=== PATIENT | male | born 1980 ===

== ENCOUNTER 2020-11-14 05:00 | Emergency (ER) | payer BC ==
[2020-11-14] MEDS ORDERED: Oxymetazoline 0.05% Nasal Spray 15 ML Bottle NAS ONE (05:01)
--- NOTE | 2020-11-14 05:06 | EDM.PDOC ---
ED HPI GENERAL MEDICAL PROBLEM - General Chief Complaint: ENT Problem Stated Complaint: NOSE BLEEDING Time Seen by Provider: 11/14/20 05:01 Source of Information: Reports: Patient History Limitations: Reports: No Limitations - History of Present Illness INITIAL COMMENTS - FREE TEXT/NARRATIVE: 40-year-old male presents for nosebleed. Patient notes that he has had on and off nosebleeds for several years but this 1 seemed worse than normal. It is restricted to the left nare. He denies any difficulty breathing or swallowing. - Related Data Allergies Allergy/AdvReac Type Severity Reaction Status Date / Time No Known Allergies Allergy Verified 11/14/20 05:11 Home Meds: Home Meds . [No Known Home Meds] 11/14/20 [History] ED ROS GENERAL - Review of Systems Review Of Systems: Comprehensive ROS is negative, except as noted in HPI. ED EXAM, GENERAL - Physical Exam Exam: See Below Exam Limited By: No Limitations General Appearance: Alert, WD/WN, No Apparent Distress Nose: Normal Inspection, Other (Dried blood in R nare, no active bleeding currently) Throat/Mouth: Normal Voice, No Airway Compromise Head: Atraumatic, Normocephalic Neck: Normal Inspection Respiratory/Chest: No Respiratory Distress, Lungs Clear, Normal Breath Sounds, No Accessory Muscle Use Cardiovascular: Normal Peripheral Pulses, Regular Rate, Rhythm Extremities: Normal Inspection Neurological: Alert, Normal Gait Psychiatric: Normal Affect, Normal Mood Skin Exam: Warm, Dry, Intact, Normal Color Course - Vital Signs Last Recorded V/S: Last Vital Signs Temp 97.1 F 11/14/20 05:09 Pulse 112 H 11/14/20 05:09 Resp 16 11/14/20 05:09 BP 167/106 H 11/14/20 05:09 Pulse Ox 97 11/14/20 05:09 - Re-Assessments/Exams Free Text/Narrative Re-Assessment/Exam: 11/14/20 05:14 We will give Afrin and trial direct pressure x20 minutes. Will reassess 11/14/20 05:37 Patient's bleeding not well controlled. Will place anterior posterior Rhino Rocket. Patient agrees to follow-up with ENT. His daughter is an established patient with Dr. Wiggins in [facility]. 11/14/20 05:49 Rhino Rocket soaked in TXA and lidocaine with epinephrine was placed without complication. Patient's bleeding stopped. He does not feel blood running down the back of his throat. Departure - Departure Time of Disposition: 05:49 Disposition: Home, Self-Care 01 Condition: Good Clinical Impression: Epistaxis - Discharge Information Referrals: PCP,None [Primary Care Provider] - Forms: ED Department Discharge Additional Instructions: ENT followup: Dr. Sarthak Estes [facility], [address] [place], [place] [id number] Dr. Nathan Lgaunas [facility] [address] [place] [address] The following information is given to patients seen in the emergency department who are being discharged to home. This information is to outline your options for follow-up care. We provide all patients seen in our emergency department with a follow-up referral. The need for follow-up, as well as the timing and circumstances, are variable depending upon the specifics of your emergency department visit. If you don't have a primary care physician on staff, we will provide you with a referral. We always advise you to contact your personal physician following an emergency department visit to inform them of the circumstance of the visit and for follow-up with them and/or the need for any referrals to a consulting specialist. The emergency department will also refer you to a specialist when appropriate. This referral assures that you have the opportunity for follow-up care with a specialist. All of these measure are taken in an effort to provide you with optimal care, which includes your follow-up. Under all circumstances we always encourage you to contact your private physician who remains a resource for coordinating your care. When calling for follow-up care, please make the office aware that this follow-up is from your recent emergency room visit. If for any reason you are refused follow-up, please contact the [facility] Emergency Department at and asked to speak to the emergency department charge nurse. Please follow up with your primary care physician. If you do not have a primary care physician, see below: [facility] [address] [place], [place] [id number] [facility] [address] [place], [place] [phone] [facility] [address] [place] [id number] Sepsis Event Note (ED) - Focused Exam Vital Signs: Vital Signs Temp Pulse Resp BP Pulse Ox 11/14/20 05:09 97.1 F 112 H 16 167/106 H 97
[2020-11-14] MEDS ORDERED: Lidocaine 1% with EPINEPHrine 1:100,000 20 ML MDV INJECT ONE (05:36)
== END 2020-11-14 05:55 | disposition home or self-care (01) ==
LOC: MW.ED 05:00
DX: R04.0 Epistaxis (principal)
CPT/HCPCS: 30901; 30903; 99282; 99283-25